=== PATIENT | male | born 1975 | race Caucasian/White ===

== ENCOUNTER 2017-05-25 08:48 | Emergency (ER) | payer SELFPAY ==
[~2017-05-25] VITALS: Wt 81.0 kg
--- NOTE | 2017-05-25 10:47 | ERD ---
ER Documentation Chief Complaint Chief Complaint fb r. eye HPI 51-year-old male presenting with a chief complaint of right eye discomfort. States that he might of gotten some in his eye 1 day ago. States blurry vision and foreign body sensation. Denies eye pain, pruritus, discharge, similar symptoms in past, sick contacts. Has not taken any medications to relieve the symptoms. Denies medical conditions. Patient has no other complaints and describes no other associated manifestations. Nursing notes have been reviewed and are consistent with history given. ROS All systems reviewed and are negative except as per history of present illness. Medications Home Meds Active Scripts Polymyxin B Sulfate-TMP* (Polymyxin B-TMP Eye Drops*) 10 Ml Drops, 1 DROP RIGHT EYE QID for 7 Days, EA Prov:NORI ANGEL PA-C 05/25/17 Allergies Allergies: Coded Allergies: No Known Allergy (Unverified , 05/25/17) PMhx/Soc Medical and Surgical Hx: pt denies Medical Hx, pt denies Surgical Hx Hx Alcohol Use: No Hx Substance Use: No Hx Tobacco Use: No Smoking Status: Never smoker Physical Exam Vitals Vital Signs Date Time Temp Pulse Resp B/P Pulse Ox O2 Delivery O2 Flow Rate FiO2 05/25/17 08:52 97.8 83 20 163/82 99 Physical Exam Const: Well-appearing 41-year-old male no acute distress Head: Atraumatic Eyes: Normal Conjunctiva. Foreign body visualized over the right iris. Ophthalmoscope exam otherwise unremarkable. No injection. ENT: Normal External Ears, Nose and Mouth. Neck: Full range of motion..~ No meningismus. Resp: Clear to auscultation bilaterally Cardio: Regular rate and rhythm, no murmurs Neur: Awake and alert Psych: Normal Mood and Affect Results 24 hrs Current Medications Medications (Trade) Dose Ordered Sig/Alena Route PRN Reason Start Time Stop Time Status Last Admin Dose Admin Proparacaine HCl (Alcaine 0.5%) 1 drop ONCE ONCE RIGHT EYE 05/25/17 11:00 05/25/17 11:01 DC Fluorescein Sodium ([id number]-Z-Mmddw) 1 strip ONCE ONCE RIGHT EYE 05/25/17 11:00 05/25/17 11:01 DC Procedures/MDM Otherwise healthy 41-year-old male presents with a chief complaints of eye irritation 1 day. States that he might of gotten foreign body in his eye. Foreign body sensation. Proparacaine and fluorescein strip administered. Green lamp exam was largely unremarkable. Foreign body visualized. Foreign body visualized. A 20-gauge needle used and foreign body removed. No complications. Visual acuity unremarkable before and after procedure. No suspicion for infection. Patient will be given prophylactic antibiotics. No suspicion for endangerment of vision or acute right. I have spoke with the patient regarding their condition and future management. They have verbally responded that they understand their status and treatment plan. The patients vitals are stable, and their current condition is appropriate for discharge. The patient will be given discharge instructions with return precautions. Discharge medications: Polytrim Departure Diagnosis: Primary Impression: Corneal foreign body Encounter type: initial encounter Laterality: right Qualified Code: T15.01XA - Foreign body of right cornea, initial encounter Condition: Stable Additional Instructions: Follow up with your PCP within the next 1-3 days for a more thorough evaluation and a possible referral to a specialist. Return the the emergency department immediately if symptoms worsen or change. If you have any questions regarding medications, ask your pharmacist or us before you leave. If any adverse reactions occur while taking your medications, discontinue the treatment and return to the emergency department immediately. Take your medications as directed, and complete the entire course of treatment. NORI ANGEL PA-C May 25, 2017 10:47
[2017-05-25] MEDS ORDERED: FLUORESCEIN STRIP RIGHT EYE ONE (11:00)
[2017-05-25] MEDS ORDERED: PROPARACAINE 0.5% 15 ML OPH RIGHT EYE ONE (11:00)
[2017-05-25] MEDS ORDERED: POLY10DR19 RIGHT EYE (11:48)
== END 2017-05-25 12:38 | disposition left against medical advice (07) ==
LOC: FTE 08:48
DX: T15.01XA Foreign body in cornea, right eye, initial encounter (principal); X58.XXXA Exposure to other specified factors, initial encounter; Y92.9 Unspecified place or not applicable